=== PATIENT | female | born 1960 | race Caucasian/White ===

== ENCOUNTER 2022-03-23 13:07 | Inpatient (IN) | payer MEDICARE, MEDICAID ==
[~2022-03-23] VITALS: Ht 177.8 cm; Wt 140.0 kg
[~2022-03-23 13:07] MED LIST: CLON-853 PO; HYDR12.56 PO; LEVO75TA6 PO; LIS20T OR; NOR10T PO
[2022-03-23] MEDS ORDERED: methylPREDNISolone SOD SUCC 125 MG/2 ML VL IV ONE (14:00)
[2022-03-23 15:35] LABS: BUN/Creatinine Ratio 18.3; Bilirubin, Total 0.6 mg/dL (0.2-1.0); Calcium 8.8 mg/dL (8.5-10.1)
[2022-03-23 15:36] LABS: Albumin 4.3 g/dL (3.4-5.0)
[2022-03-23 16:34] LABS: Hematocrit 49.2 % (36.0-46.0); Hemoglobin 16.1 g/dL (12.2-16.2); Mean Corpuscular Hgb Conc. 32.7 g/dL (32.0-36.0); Mean Corpuscular Volume 91.6 fL (80.0-100.0); Red Blood Cells 5.37 10^6/uL (4.0-5.20); Red Cell Distribution Width 14.4 % (11.8-14.3); White Blood Cell 12.7 10^3/uL (4.4-10.8)
[2022-03-23 16:37] LABS: Basophils % (manual) 0 (0.0-2.0); Blast Cells 0; Eosinophils % (manual) 0 (0-7); Metamyelocytes % 0; Myelocytes % 0; Promyelocytes % 0; Reactive Lymphocytes 0
[2022-03-23] MEDS ORDERED: AZITHROMYCIN 500MG/ 250ML 250 ML IV ONE (17:00)
[2022-03-23 17:39] LABS: Band Neutrophils % (manual) 33; Lymphocytes % (manual) 3 (10.0-50.0); Monocytes % (manual) 6 (0-12)
[2022-03-23] MEDS ORDERED: IOHEXOL 350 MG/ML 100ML IJ ONE (18:21)
[2022-03-23] MEDS ORDERED: MORPHINE SULFATE INJ 2 MG/ml SYRG IV PRN (18:30)
[2022-03-23] MEDS ORDERED: NITROGLYCERIN 0.4 MG SL TAB SL PRN (18:30)
[2022-03-23] MEDS ORDERED: ENOXAPARIN SOD 120 MG/0.8 ML SYRINGE SC ONE (18:45)
[2022-03-23 19:17] LABS: Cholesterol 226 mg/dL (< 200); HDL Cholesterol 70 mg/dL (40-59); LDL Cholesterol 144 mg/dL (< 100); Triglycerides 97 mg/dL (< 150)
[2022-03-23] MEDS: IPRATROPIUM BROM 0.5 MG/2.5ML INH SOL NEB PRN (22:28)
[2022-03-23] MEDS: ALBUTEROL SULF 2.5 MG/0.5ML(0.5%) NEB SOLN NEB PRN (22:29)
[2022-03-23] MEDS ORDERED: ACETAMINOPHEN 325 MG TAB PO PRN (23:45)
[2022-03-24 00:34] LABS: Urine Bacteria NONE SEEN /hpf (None Seen); Urine Blood Negative /uL (Negative); Urine Specific Gravity 1.027 (1.001-1.035); Urine WBC 2 /hpf (0 - 5)
[2022-03-24] MEDS: clonazePAM 0.5 MG TAB PO PRN ×2 (00:40→22:46)
[2022-03-24 00:47] LABS: Alcohol, Urine < 3.0 mg/dL (0-10); Amphetamine Screen, Urine NEGATIVE (NEGATIVE); Barbiturate Scree,Urine NEGATIVE (NEGATIVE); Benzodiazephine Screen, Urine NEGATIVE (NEGATIVE); Cannabinoid Screen, Urine NEGATIVE (NEGATIVE); Cocaine Screen, Urine NEGATIVE (NEGATIVE); Opiate Scree,Urine NEGATIVE (NEGATIVE); Phencyclidine Screen, Urine NEGATIVE (NEGATIVE)
[2022-03-24 04:25] VITALS: BP 100/50
[2022-03-24 04:53] LABS: Basophils # (auto) 0 10 ^3/uL (0-0.2); Basophils % (auto) 0.2 % (0.0-2.0); Eosinophils # (auto) 0 10 ^3/uL (0-0.8); Hematocrit 41.8 % (36.0-46.0); Hemoglobin 14.3 g/dL (12.2-16.2); Lymphocytes # (auto) 0.6 10 ^3/uL (0.4-5.4); Lymphocytes % (auto) 4.7 % (10.0-50.0); Mean Corpuscular Hemoglobin 30.6 pg (28.0-32.0); Mean Corpuscular Hgb Conc. 34.2 g/dL (32.0-36.0); Mean Corpuscular Volume 89.5 fL (80.0-100.0); Monocytes # (auto) 0.6 10 ^3/uL (0-1.3); Monocytes % (auto) 4.9 % (0.0-12.0); Neutrophils # (auto) 10.9 10 ^3/uL (1.6-8.6); Neutrophils % (auto) 90.2 % (37.0-80.0); Red Blood Cells 4.68 10^6/uL (4.0-5.20); White Blood Cell 12.1 10^3/uL (4.4-10.8)
[2022-03-24 05:12] LABS: Albumin 3.5 g/dL (3.4-5.0); Calcium 8.9 mg/dL (8.5-10.1); Potassium 3.9 mmol/L (3.5-5.1)
[2022-03-24 05:14] LABS: BUN/Creatinine Ratio 16.2
[2022-03-24 05:25] LABS: Bilirubin, Total 1.2 mg/dL (0.2-1.0); Total Protein 6.5 g/dL (6.4-8.2)
[2022-03-24] MEDS ORDERED: ALBUTEROL MEDNEB 2.5 mg/3ml NEB ONE ×3 (05:41→18:00)
[2022-03-24] MEDS: IPRATROPIUM BROM 0.5 MG/2.5ML INH SOL NEB SCH ×3 (06:36→20:28)
[2022-03-24] MEDS: ALBUTEROL SULF 2.5 MG/0.5ML(0.5%) NEB SOLN NEB SCH ×3 (06:36→20:28)
[2022-03-24] MEDS: cefTRIAXone 1GM/50ML D5W 50 ML IV SCH (09:34)
[2022-03-24] MEDS: ENOXAPARIN SOD 40 MG/0.4 ML SYRINGE SC SCH (09:34)
[2022-03-24] MEDS: LEVOTHYROXINE SODIUM 25 MCG TAB PO SCH (09:42)
[2022-03-24] MEDS: OXYCODONE W/ ACETAMINOPHEN 5/325MG TABLET PO PRN ×2 (09:43→17:40)
[2022-03-24] MEDS: LISINOPRIL 20 MG TAB PO SCH (10:00)
[2022-03-24] MEDS: HCTZ 25 MG TAB PO SCH (10:00)
[2022-03-24] MEDS: AZITHROMYCIN 500MG/ 250ML 250 ML IV SCH (11:38)
[2022-03-24] MEDS: methylPREDNISolone SOD SUCC 125 MG/2 ML VL IV SCH ×2 (14:22→22:48)
[2022-03-24 19:52] VITALS: BP 125/61
[2022-03-24 22:00] VITALS: BP 137/71
[2022-03-24] MEDS: ATORVASTATIN 20 MG TAB PO SCH (22:00)
[2022-03-24] MEDS ORDERED: oxyCODONE ER 20 MG TAB PO ONE (22:15)
[2022-03-25 05:00] VITALS: BP 119/95
[2022-03-25] MEDS ORDERED: ALBUTEROL MEDNEB 2.5 mg/3ml NEB ONE ×3 (05:31→18:26)
[2022-03-25] MEDS: methylPREDNISolone SOD SUCC 125 MG/2 ML VL IV SCH ×3 (06:10→22:46)
[2022-03-25] MEDS: IPRATROPIUM BROM 0.5 MG/2.5ML INH SOL NEB SCH ×3 (07:29→19:15)
[2022-03-25] MEDS: ALBUTEROL SULF 2.5 MG/0.5ML(0.5%) NEB SOLN NEB SCH ×3 (07:30→19:16)
[2022-03-25] MEDS ORDERED: OXY20CRT PO (07:58)
[2022-03-25 09:00] VITALS: BP 121/57
[2022-03-25] MEDS: oxyCODONE ER 20 MG TAB PO SCH ×2 (09:39→21:25)
[2022-03-25] MEDS: LEVOTHYROXINE SODIUM 25 MCG TAB PO SCH (09:40)
[2022-03-25] MEDS: cefTRIAXone 1GM/50ML D5W 50 ML IV SCH (09:42)
[2022-03-25] MEDS: HCTZ 25 MG TAB PO SCH (09:42)
[2022-03-25] MEDS: LISINOPRIL 20 MG TAB PO SCH (09:42)
[2022-03-25] MEDS: ENOXAPARIN SOD 40 MG/0.4 ML SYRINGE SC SCH (09:44)
[2022-03-25] MEDS: AZITHROMYCIN 500MG/ 250ML 250 ML IV SCH (10:48)
[2022-03-25] MEDS: HYDROcodone-ACET 10/325MG TAB PO PRN ×2 (12:11→21:26)
[2022-03-25 13:00] VITALS: BP 133/64
[2022-03-25 16:20] VITALS: BP 126/63
[2022-03-25 22:00] VITALS: BP 136/66
[2022-03-25] MEDS: ATORVASTATIN 20 MG TAB PO SCH (22:00)
[2022-03-26] MEDS: clonazePAM 0.5 MG TAB PO PRN (00:52)
[2022-03-26 05:00] VITALS: BP 151/87
[2022-03-26] MEDS: IPRATROPIUM BROM 0.5 MG/2.5ML INH SOL NEB SCH ×3 (06:00→19:16)
[2022-03-26] MEDS: ALBUTEROL SULF 2.5 MG/0.5ML(0.5%) NEB SOLN NEB SCH ×3 (06:00→19:17)
[2022-03-26] MEDS: methylPREDNISolone SOD SUCC 125 MG/2 ML VL IV SCH ×3 (06:22→22:47)
[2022-03-26] MEDS: HYDROcodone-ACET 10/325MG TAB PO PRN ×3 (06:23→22:48)
[2022-03-26 08:00] VITALS: BP 121/57
[2022-03-26] MEDS: cefTRIAXone 1GM/50ML D5W 50 ML IV SCH (08:44)
[2022-03-26] MEDS: oxyCODONE ER 20 MG TAB PO SCH ×2 (08:44→22:47)
[2022-03-26] MEDS: LEVOTHYROXINE SODIUM 25 MCG TAB PO SCH (08:44)
[2022-03-26] MEDS: AZITHROMYCIN 500MG/ 250ML 250 ML IV SCH (08:45)
[2022-03-26] MEDS: LISINOPRIL 20 MG TAB PO SCH (08:51)
[2022-03-26] MEDS: ENOXAPARIN SOD 40 MG/0.4 ML SYRINGE SC SCH (08:51)
[2022-03-26] MEDS: HCTZ 25 MG TAB PO SCH (08:53)
[2022-03-26 09:00] VITALS: BP 156/85
[2022-03-26] MEDS: OXYCODONE W/ ACETAMINOPHEN 5/325MG TABLET PO PRN (10:06)
[2022-03-26] MEDS ORDERED: guaiFENesin-DM 100/10mg/5ml SYR PO PRN (12:00)
[2022-03-26 13:00] VITALS: BP 147/88
[2022-03-26 16:56] VITALS: BP 160/59
[2022-03-26] MEDS ORDERED: ALBUTEROL MEDNEB 2.5 mg/3ml NEB ONE (18:57)
[2022-03-26 22:00] VITALS: BP 170/77
[2022-03-26] MEDS ORDERED: guaiFENesin-DM 100/10mg/5ml SYR PO ONE (22:00)
[2022-03-26] MEDS: ATORVASTATIN 20 MG TAB PO SCH (22:00)
[2022-03-27] VITALS (8 sets, daily range): BP systolic 121–193; BP diastolic 50–92
[2022-03-27] MEDS: clonazePAM 0.5 MG TAB PO PRN (00:24)
[2022-03-27] MEDS ORDERED: ALBUTEROL MEDNEB 2.5 mg/3ml NEB ONE (05:46)
[2022-03-27] MEDS: methylPREDNISolone SOD SUCC 125 MG/2 ML VL IV SCH ×2 (06:44→14:30)
[2022-03-27] MEDS: HYDROcodone-ACET 10/325MG TAB PO PRN ×2 (06:46→16:13)
[2022-03-27] MEDS: ALBUTEROL SULF 2.5 MG/0.5ML(0.5%) NEB SOLN NEB SCH ×3 (07:59→17:30)
[2022-03-27] MEDS: IPRATROPIUM BROM 0.5 MG/2.5ML INH SOL NEB SCH ×3 (07:59→17:30)
[2022-03-27] MEDS: oxyCODONE ER 20 MG TAB PO SCH (08:45)
[2022-03-27] MEDS: LEVOTHYROXINE SODIUM 25 MCG TAB PO SCH (08:46)
[2022-03-27] MEDS: AZITHROMYCIN 500MG/ 250ML 250 ML IV SCH (08:47)
[2022-03-27] MEDS: cefTRIAXone 1GM/50ML D5W 50 ML IV SCH (08:47)
[2022-03-27] MEDS: LISINOPRIL 20 MG TAB PO SCH (08:47)
[2022-03-27] MEDS: guaiFENesin-DM 100/10mg/5ml SYR PO PRN ×2 (09:40→18:24)
[2022-03-27] MEDS: HCTZ 25 MG TAB PO SCH (10:00)
[2022-03-27] MEDS: ENOXAPARIN SOD 40 MG/0.4 ML SYRINGE SC SCH (10:11)
[2022-03-27] MEDS ORDERED: cloNIDine HCL 0.1 MG TAB PO ONE (10:15)
[2022-03-27] MEDS ORDERED: LISINOPRIL 20 MG TAB PO ONE (10:15)
[2022-03-27] MEDS: OXYCODONE W/ ACETAMINOPHEN 5/325MG TABLET PO PRN ×2 (10:34→14:30)
[2022-03-27] MEDS ORDERED: METOPROLOL TARTRATE 50 MG TAB PO ONE (11:00)
[2022-03-27 11:16] LABS: Hematocrit 40.7 % (36.0-46.0); Hemoglobin 13.3 g/dL (12.2-16.2); Mean Corpuscular Hemoglobin 29.4 pg (28.0-32.0); Mean Corpuscular Hgb Conc. 32.6 g/dL (32.0-36.0); Mean Corpuscular Volume 90.2 fL (80.0-100.0); Red Blood Cells 4.51 10^6/uL (4.0-5.20); Red Cell Distribution Width 13.9 % (11.8-14.3); White Blood Cell 15.3 10^3/uL (4.4-10.8)
[2022-03-27 11:31] LABS: BUN/Creatinine Ratio 29.1; Calcium 8.4 mg/dL (8.5-10.1); Potassium 4.2 mmol/L (3.5-5.1)
[2022-03-27 11:46] LABS: Basophils % (manual) 0 (0.0-2.0); Blast Cells 0; Eosinophils % (manual) 0 (0-7); Metamyelocytes % 0; Myelocytes % 0; Promyelocytes % 0; Reactive Lymphocytes 0
[2022-03-27 13:47] LABS: Band Neutrophils % (manual) 6; Lymphocytes % (manual) 7 (10.0-50.0); Monocytes % (manual) 5 (0-12)
[2022-03-27] MEDS ORDERED: hydrALAZINE HCL 20 MG/ML VL IV PRN (17:30)
[2022-03-27] MEDS: ATORVASTATIN 20 MG TAB PO SCH (22:00)
[2022-03-27] MEDS ORDERED: METOPROLOL TARTRATE 50 MG TAB PO SCH (22:00)
[2022-03-28] MEDS: methylPREDNISolone SOD SUCC 125 MG/2 ML VL IV SCH ×4 (00:03→21:24)
[2022-03-28] MEDS: guaiFENesin-DM 100/10mg/5ml SYR PO PRN ×3 (00:03→21:23)
[2022-03-28] MEDS: oxyCODONE ER 20 MG TAB PO SCH ×3 (00:04→21:24)
[2022-03-28] MEDS: METOPROLOL TARTRATE 50 MG TAB PO SCH ×3 (00:05→21:29)
[2022-03-28] MEDS: HYDROcodone-ACET 10/325MG TAB PO PRN ×2 (00:05→20:57)
[2022-03-28] MEDS: clonazePAM 0.5 MG TAB PO PRN ×2 (00:06→21:29)
[2022-03-28 05:00] VITALS: BP 203/111
[2022-03-28] MEDS: IPRATROPIUM BROM 0.5 MG/2.5ML INH SOL NEB SCH ×3 (06:00→18:29)
[2022-03-28] MEDS: ALBUTEROL SULF 2.5 MG/0.5ML(0.5%) NEB SOLN NEB SCH ×3 (06:00→18:29)
[2022-03-28 09:00] VITALS: BP 192/98
[2022-03-28] MEDS: ALBUTEROL SULF 2.5 MG/0.5ML(0.5%) NEB SOLN NEB PRN (09:27)
[2022-03-28] MEDS: IPRATROPIUM BROM 0.5 MG/2.5ML INH SOL NEB PRN (09:27)
[2022-03-28] MEDS: cefTRIAXone 1GM/50ML D5W 50 ML IV SCH (10:04)
[2022-03-28] MEDS: ENOXAPARIN SOD 40 MG/0.4 ML SYRINGE SC SCH (10:04)
[2022-03-28] MEDS: LEVOTHYROXINE SODIUM 25 MCG TAB PO SCH (10:05)
[2022-03-28] MEDS: LISINOPRIL 20 MG TAB PO SCH (10:06)
[2022-03-28] MEDS: amLODIPine BESYLATE 5 MG TAB PO SCH (10:06)
[2022-03-28] MEDS: HCTZ 25 MG TAB PO SCH (11:38)
[2022-03-28] MEDS: AZITHROMYCIN 500MG/ 250ML 250 ML IV SCH (11:38)
[2022-03-28] MEDS: hydrALAZINE HCL 10 MG TAB PO SCH ×2 (12:09→18:21)
[2022-03-28] MEDS: ACYCLOVIR 400 MG TAB PO SCH ×2 (14:33→21:24)
[2022-03-28 14:39] VITALS: BP 133/66
[2022-03-28 16:41] VITALS: BP 146/77
[2022-03-28] MEDS ORDERED: ALBUTEROL MEDNEB 2.5 mg/3ml NEB ONE (18:18)
[2022-03-28] MEDS: ATORVASTATIN 20 MG TAB PO SCH (21:40)
[2022-03-28 22:00] VITALS: BP 200/98
[2022-03-29] MEDS: cloNIDine HCL 0.1 MG TAB PO PRN ×2 (01:32→12:33)
[2022-03-29 05:00] VITALS: BP 148/83
[2022-03-29] MEDS: ALBUTEROL SULF 2.5 MG/0.5ML(0.5%) NEB SOLN NEB SCH ×3 (06:00→14:31)
[2022-03-29] MEDS: IPRATROPIUM BROM 0.5 MG/2.5ML INH SOL NEB SCH ×4 (06:00→18:27)
[2022-03-29] MEDS ORDERED: ALBUTEROL MEDNEB 2.5 mg/3ml NEB ONE ×3 (06:06→17:37)
[2022-03-29] MEDS: methylPREDNISolone SOD SUCC 125 MG/2 ML VL IV SCH (06:07)
[2022-03-29] MEDS: guaiFENesin-DM 100/10mg/5ml SYR PO PRN (06:07)
[2022-03-29] MEDS: hydrALAZINE HCL 10 MG TAB PO SCH ×4 (06:08→17:58)
[2022-03-29] MEDS: ACYCLOVIR 400 MG TAB PO SCH ×3 (06:08→20:59)
[2022-03-29 09:06] VITALS: BP 179/83
[2022-03-29] MEDS: METOPROLOL TARTRATE 50 MG TAB PO SCH ×2 (09:30→20:59)
[2022-03-29] MEDS: ENOXAPARIN SOD 40 MG/0.4 ML SYRINGE SC SCH (09:31)
[2022-03-29] MEDS: cefTRIAXone 1GM/50ML D5W 50 ML IV SCH (09:31)
[2022-03-29] MEDS: HCTZ 25 MG TAB PO SCH (09:31)
[2022-03-29] MEDS: LEVOTHYROXINE SODIUM 25 MCG TAB PO SCH (09:32)
[2022-03-29] MEDS: LISINOPRIL 20 MG TAB PO SCH (09:32)
[2022-03-29] MEDS: oxyCODONE ER 20 MG TAB PO SCH ×2 (09:33→20:59)
[2022-03-29] MEDS: amLODIPine BESYLATE 5 MG TAB PO SCH (09:33)
[2022-03-29] MEDS: AZITHROMYCIN 250 MG TAB PO SCH (11:27)
[2022-03-29] MEDS: OXYCODONE W/ ACETAMINOPHEN 5/325MG TABLET PO PRN ×2 (13:38→17:58)
[2022-03-29 14:04] VITALS: BP 164/70
[2022-03-29 17:07] VITALS: BP 132/67
[2022-03-29] MEDS: ATORVASTATIN 20 MG TAB PO SCH (20:59)
[2022-03-29 22:00] VITALS: BP 125/77
[2022-03-30] MEDS: hydrALAZINE HCL 10 MG TAB PO SCH ×3 (00:03→16:00)
[2022-03-30 01:50] VITALS: BP 125/76
[2022-03-30 05:00] VITALS: BP 156/85
[2022-03-30] MEDS ORDERED: ALBUTEROL MEDNEB 2.5 mg/3ml NEB ONE ×2 (05:57→10:30)
[2022-03-30] MEDS: ALBUTEROL SULF 2.5 MG/0.5ML(0.5%) NEB SOLN NEB SCH ×3 (06:00→11:23)
[2022-03-30] MEDS: ACYCLOVIR 400 MG TAB PO SCH ×2 (06:20→16:00)
[2022-03-30] MEDS: IPRATROPIUM BROM 0.5 MG/2.5ML INH SOL NEB PRN (06:46)
[2022-03-30] MEDS: LEVOTHYROXINE SODIUM 25 MCG TAB PO SCH (07:06)
[2022-03-30] MEDS: HYDROcodone-ACET 10/325MG TAB PO PRN ×3 (07:06→16:00)
[2022-03-30 09:03] VITALS: BP 142/70
[2022-03-30] MEDS: HCTZ 25 MG TAB PO SCH (10:00)
[2022-03-30] MEDS: oxyCODONE ER 20 MG TAB PO SCH (10:25)
[2022-03-30] MEDS: cefTRIAXone 1GM/50ML D5W 50 ML IV SCH ×2 (10:27→10:29)
[2022-03-30] MEDS: ENOXAPARIN SOD 40 MG/0.4 ML SYRINGE SC SCH (10:36)
[2022-03-30] MEDS: AZITHROMYCIN 250 MG TAB PO SCH (10:37)
[2022-03-30] MEDS: LISINOPRIL 20 MG TAB PO SCH (10:38)
[2022-03-30] MEDS: amLODIPine BESYLATE 5 MG TAB PO SCH (10:38)
[2022-03-30] MEDS: METOPROLOL TARTRATE 50 MG TAB PO SCH (10:39)
[2022-03-30] MEDS ORDERED: ACYC5CRE4 TOP (11:10)
[2022-03-30] MEDS ORDERED: HYDR25TA5 PO (11:10)
[2022-03-30] MEDS ORDERED: AMLO-496 PO (11:10)
[2022-03-30] MEDS ORDERED: ALBUAER3 IN (11:10)
[2022-03-30] MEDS ORDERED: METO25TA5 PO (11:10)
[2022-03-30] MEDS ORDERED: AZIT500T66 PO (11:10)
[2022-03-30] MEDS ORDERED: HYDR50TA15 PO (11:10)
[2022-03-30] MEDS ORDERED: LISI20TA28 PO (11:10)
[2022-03-30] MEDS: IPRATROPIUM BROM 0.5 MG/2.5ML INH SOL NEB SCH (11:23)
[2022-03-30 13:03] VITALS: BP 149/81
[2022-03-30 14:35] VITALS: BP 149/81
== END 2022-03-30 16:06 | disposition home or self-care (01) | DRG 871 ==
LOC: ER 13:13 → TELE 18:27 → TELE-WESTW 03-24 18:34
PROVIDERS: ADMIT Registered Nurse; ATTEND Family Medicine
DX: A41.9 Sepsis, unspecified organism (principal); J18.9 Pneumonia, unspecified organism; J96.01 Acute respiratory failure with hypoxia; I16.1 Hypertensive emergency; I50.32 Chronic diastolic (congestive) heart failure; Z68.41 Body mass index [BMI] 40.0-44.9, adult; E66.01 Morbid (severe) obesity due to excess calories; K44.9 Diaphragmatic hernia without obstruction or gangrene; E03.9 Hypothyroidism, unspecified; Z20.822 Contact with and (suspected) exposure to COVID-19; E78.00 Pure hypercholesterolemia, unspecified; F17.210 Nicotine dependence, cigarettes, uncomplicated; G89.4 Chronic pain syndrome; I11.0 Hypertensive heart disease with heart failure; I16.0 Hypertensive urgency; R73.03 Prediabetes; Z68.38 Body mass index [BMI] 38.0-38.9, adult; Z88.8 Allergy status to other drugs, medicaments and biological substances; Z79.899 Other long term (current) drug therapy; Z87.442 Personal history of urinary calculi; Z91.199 Patient's noncompliance with other medical treatment and regimen due to unspecified reason
CPT/HCPCS: 36415; 36600; 71045; 71275; 80048; 80053; 80061; 80307; 81001; 82805; 83036; 83605; 83880; 84443; 84484; 85007; 85025; 85027; 85379; 87040; 87426; 87804; 93005; 93306; 93970; 94640; 96365; 96366; 96367; 96372; 96375; 96376; G0378; J0696

== ENCOUNTER 2022-04-23 13:15 | Emergency (ER) | payer MEDICARE, MEDICAID ==
[~2022-04-23] VITALS: Ht 177.8 cm; Wt 130.0 kg
[~2022-04-23 13:15] MED LIST changes: +ACYC5CRE4 TOP; +ALBUAER3 IN; +AMLO-496 PO; +AZIT500T66 PO; +HYDR25TA5 PO; +HYDR50TA15 PO; +LISI20TA28 PO; +METO25TA5 PO; +OXY20CRT PO
[2022-04-23 13:32] VITALS: BP 132/74
[2022-04-23 14:48] LABS: Basophils # (auto) 0.1 10 ^3/uL (0-0.2); Basophils % (auto) 0.8 % (0.0-2.0); Eosinophils # (auto) 0.1 10 ^3/uL (0-0.8); Eosinophils % (auto) 2.1 % (0.0-7.0); Hematocrit 43.7 % (36.0-46.0); Hemoglobin 14.8 g/dL (12.2-16.2); Lymphocytes # (auto) 1.2 10 ^3/uL (0.4-5.4); Lymphocytes % (auto) 18.8 % (10.0-50.0); Mean Corpuscular Hemoglobin 30.7 pg (28.0-32.0); Mean Corpuscular Hgb Conc. 33.9 g/dL (32.0-36.0); Mean Corpuscular Volume 90.7 fL (80.0-100.0); Monocytes # (auto) 0.6 10 ^3/uL (0-1.3); Monocytes % (auto) 9.3 % (0.0-12.0); Neutrophils # (auto) 4.5 10 ^3/uL (1.6-8.6); Nucleated Red Blood Cells % 0.1 %; Red Blood Cells 4.81 10^6/uL (4.0-5.20); Red Cell Distribution Width 14.3 % (11.8-14.3); White Blood Cell 6.6 10^3/uL (4.4-10.8)
[2022-04-23 15:27] LABS: Albumin 4.1 g/dL (3.4-5.0); BUN/Creatinine Ratio 22.2; Bilirubin, Total 0.3 mg/dL (0.2-1.0); Total Protein 6.8 g/dL (6.4-8.2)
[2022-04-23 15:51] LABS: Potassium 4.7 mmol/L (3.5-5.1)
== END 2022-04-23 22:35 | disposition left against medical advice (07) ==
LOC: ER 13:15
DX: I10 Essential (primary) hypertension (principal); F17.210 Nicotine dependence, cigarettes, uncomplicated; Z90.89 Acquired absence of other organs; Z79.899 Other long term (current) drug therapy; Z88.8 Allergy status to other drugs, medicaments and biological substances
CPT/HCPCS: 36415; 80053; 84484; 85025; 85379; 93005

== ENCOUNTER 2022-07-28 18:01 | Emergency (ER) | payer MEDICARE, MEDICAID ==
[~2022-07-28] VITALS: Ht 177.8 cm; Wt 130.4 kg
[2022-07-28 20:00] VITALS: BP 95/56
== END 2022-07-28 20:00 | disposition home or self-care (01) ==
LOC: ER 18:01
DX: I16.0 Hypertensive urgency (principal); F17.210 Nicotine dependence, cigarettes, uncomplicated; Z90.89 Acquired absence of other organs; Z79.899 Other long term (current) drug therapy; Z88.8 Allergy status to other drugs, medicaments and biological substances
CPT/HCPCS: 93005

== ENCOUNTER 2024-05-30 14:09 | Inpatient (IN) | payer MEDICARE, MEDICAID ==
[~2024-05-30] VITALS: Ht 177.8 cm; Wt 79.5 kg
[~2024-05-30 14:09] MED LIST changes: -AMLO-496 PO; +AMLO1TAB23 PO; -HYDR12.56 PO; +HYDR12.59 PO; -HYDR50TA15 PO; +HYDR50TA47 PO; -LISI20TA28 PO; +LISI20TA56 PO
--- NOTE | 2024-05-30 14:45 | ED.PDOC ---
Altered Mental Status HPI Comments 64 y.o female accompanied by daughter, presents to the ED for an evaluation for possible unwitnessed ALOC last night. Patient reports she was sitting on her bed watching TV last night, went outside to get fresh air and when she came back in she felt "off". Patient is unable to described experience but does state not feeling herself and having somewhat an in and out unconsciousness. Patient reports she became alert and saw her dog in panic and looking at her. Patient today complains of dizziness. Patient has no history of seizures, nausea, vomiting, chest pain or SOB. Patient has medical history of HTN, thyroid disease and PNA. Chief Complaint: Syncope Time Seen by MD: 14:25 Primary Care Provider: SHEEBA Reviewed Notes: Nurses Notes, Medications, Allergies Allergies: Coded Allergies: Tramadol (Verified Allergy, Unknown, 03/23/22) Home Meds Active Scripts Acyclovir Topical (Zovirax) 5 % Cre, 1 APPLIC TOP 5XD, #15 GRAMS 1 Refill Prov:MEIR VICENTE MD 03/30/22 Lisinopril (Lisinopril) 20 Mg Tab, 1 TAB PO DAILY, #90 TAB 1 Refill Prov:MEIR VICENTE MD 03/30/22 Amlodipine Besylate (Amlodipine Besylate) 10 Mg Tab, 1 TAB PO DAILY, #90 TAB 1 Refill Prov:MEIR VICENTE MD 03/30/22 Hctz (Hydrochlorothiazide) 25 Mg Tab, 25 MG PO DAILY, #90 TAB Prov:MEIR VICENTE MD 03/30/22 Hydralazine Hcl (Hydralazine Hcl) 50 Mg Tab, 1 TAB PO TID, #90 TAB 5 Refills Prov:MEIR VICENTE MD 03/30/22 Albuterol Sulfate (VENTOLIN MDI) 90 Mcg Ih, 90 MCG IN Q4HR, #1 INH Prov:MEIR VICENTE MD 03/30/22 Reported Medications Clonidine Hydrochloride (Clonidine Hcl) 0.2 Mg Tab, 1 TAB PO QID 05/30/24 Fluoxetine HCl (Fluoxetine HCl) 20 Mg Cap, 1 CAP PO DAILY 05/30/24 Clonazepam (Clonazepam) 0.5 Mg Tab, 1 TAB PO HS 05/30/24 Metoprolol Tartrate (LOPRESSOR TABLET) 50 Mg Tb, 1 TAB PO BID 05/30/24 Oxycodone Hcl (OxyCONTIN ER Tablet) 20 Mg Tb, 40 MG PO Q12HR, TAB 03/25/22 Hydrocodone-Acetaminophen ([place] 10/325MG) 1 Tab Tb, 1 TAB PO QID, #120 TAB 02/13/15 Levothyroxine Sodium (Levothyroxine Sodium) 75 Mcg Tab, 1 TAB PO DAILY, #30 TAB 5 Refills 02/13/15 Hydrochlorothiazide (Hydrochlorothiazide) 12.5 Mg Cap, 1 CAP PO DAILY, #30 CAP 5 Refills 02/13/15 Lisinopril (ZESTRIL TABLET) 20 Mg Tb, 20 MG OR DAILY 02/13/15 Discontinued Reported Medications Clonazepam (Clonazepam) 1 Mg Tab, 1 TAB PO DAILYP PRN for ANXIETY, #30 TAB 02/13/15 Discontinued Scripts Metoprolol Tartrate (Metoprolol Tartrate) 25 Mg Tab, 1 TAB PO BID, #180 TAB 1 Refill Prov:MEIR VICENTE MD 03/30/22 Azithromycin (Azithromycin) 500 Mg Tab, 1 TAB PO DAILY, #7 TAB Prov:MEIR VICENTE MD 03/30/22 Information Source: Patient, Relative (daughter ) Mode of Arrival: Wheelchair Severity: Moderate Timing: Days (1) Duration: Since onset Quality: Decreased Alertness, Change in Behavior Recent: Other History of: None Associated Signs and Symptoms: Other Past Medical History PAST MEDICAL HISTORY: HTN, Kidney Stones, Thyroid Surgical History: Tonsillectomy Surgical History (Other): right knee replacement ZOO KEEPER History: No Pertinent ZOO KEEPER History Family History Family History: Reviewed,noncontributory to illness, Family hx of Cancer, Family hx of heart helen Social History Smoker: Non-Smoker Alcohol: Denies ETOH Use Drugs: Denies Drug Use Lives In: Home Constitutional: denies: chills, diaphoresis, fatigue, fever, malaise, sweats, weakness, others EENTM: denies: blurred vision, double vision, ear bleeding, ear discharge, ear drainage, ear pain, ear ringing, eye pain, eye redness, hearing loss, mouth pain, mouth swelling, nasal discharge, nose bleeding, nose congestion, nose pain, photophobia, tearing, throat pain, throat swelling, voice changes, others Respiratory: denies: cough, hemoptysis, orthopnea, SOB at rest, shortness of breath, SOB with excertion, stridor, wheezing, others Cardiovascular: reports: lightheadedness, syncope; denies: chest pain, dizzy spells, diaphoresis, Dyspnea on exertion, edema, irregular heart beat, left arm pain, palpitations, PND, others Gastrointestinal: denies: abdomen distended, abdominal pain, blood streaked bowels, constipated, diarrhea, dysphagia, difficulty swallowing, hematemesis, melena, nausea, poor appetite, poor fluid intake, rectal bleeding, rectal pain, vomiting, others Genitourinary: denies: abnormal vagina bleeding, burning, dyspareunia, dysuria, flank pain, frequency, hematuria, incontinence, pain, , vagina di scharge, urgency, others Neurological: reports: dizziness; denies: fainting, headache, left sided numbness, left sided weakness, numbness, paresthesia, pre-existing deficit, right sided numbness, right sided weakness, seizure, speech problems, tingling, tremors, weakness, others Musculoskeletal: denies: back pain, gout, joint pain, joint swelling, muscle pain, muscle stiffness, neck pain, others Integumetry: denies: bruises, change in color, change in hair/nails, dryness, laceration, lesions, lumps, rash, wounds, others Allergic/Immunocompromised: denies: Difficulty Healing, Frequent Infections, Hives, Itching, others Hematologic/Lymphatic: denies: anemia, blood clots, easy bleeding, easy bruising, swollen glands, others Endocrine: denies: excessive hunger, excessive sweating, excessive thirst, excessive urination, flushing, intolerance to cold, intolerance to heat, unexplained weight gain, unexplained weight loss, others Psychiatric: denies: anxiety, bipolar disorder, depression, hopeless, panic disorder, schizophrenia, sleepless, suicidal, others All Other Systems: Reviewed and Negative Physical Exam General Appearance: Moderate Distress, Obese HEENT: Pale Conjuntivae (L), Pale Conjuntivae (R), Pharynx Normal, TMs Normal Neck: Full Range of Motion, Non-Tender, Normal, Normal Inspection Respiratory: Chest Non-Tender, Lungs Clear, No Accessory Muscle Use, No Respiratory Distress, Normal Breath Sounds Cardiovascular: No Edema, No JVD, No Murmur, No Gallop, Normal Peripheral Pulses, Regular Rate/Rhythm Breast Exam: Deferred Gastrointestinal: No Organomegaly, Non Tender, No Pulsatile Mass, Normal Bowel Sounds, Soft Genitalia: Deferred Pelvic: Deferred Rectal: Deferred Extremities: Decreased range of motion (Right knee), No calf tenderness, Normal capillary refill, Pedal edema Musculoskeletal : Apperance: Normal Neurologic: Alert, putty mixer II-XII nml as Tested, Motor Weakness, Normal Affect, Normal Mood, No Sensory Deficits Cerebellar Function: Normal Reflexes: Normal Skin: Dry, Normal Color, Warm Lymphatic: No Adenopathy Was a procedure done? Was a procedure done?: No Differential Diagnosis (ALOC) Differential Diagnosis: Dehydration, Hypoglycemia, Encephalopathy, Seizure, Closed Head Injury, CVA X-Ray, Labs, Meds, VS Vital Signs Date Time Temp Pulse Resp B/P (MAP) Pulse Ox O2 Delivery O2 Flow Rate FiO2 05/30/24 16:06 18 Room Air* 0 21 05/30/24 15:36 54 05/30/24 14:26 98.5 75 17 169/85 (113) 95 Lab Test 05/30/24 15:20 05/30/24 14:21 Range/Units White Blood Count 8.0 4.4-10.8 10^3/uL Red Blood Count 4.83 4.0-5.20 10^6/uL Hemoglobin 14.6 12.2-16.2 g/dL Hematocrit 42.9 36.0-46.0 % Mean Corpuscular Volume 88.8 80.0-100.0 fL Mean Corpuscular Hemoglobin 30.2 28.0-32.0 pg Mean Corpuscular Hemoglobin Concent 34.0 32.0-36.0 g/dL Red Cell Distribution Width 13.9 11.8-14.3 % Platelet Count 301 140-450 10^3/uL Mean Platelet Volume 8.1 6.9-10.8 fL Neutrophils (%) (Auto) 70.1 37.0-80.0 % Lymphocytes (%) (Auto) 18.5 10.0-50.0 % Monocytes (%) (Auto) 8.2 0.0-12.0 % Eosinophils (%) (Auto) 2.2 0.0-7.0 % Basophils (%) (Auto) 1.0 0.0-2.0 % Neutrophils # (Auto) 5.6 1.6-8.6 10 ^3/uL Lymphocytes # (Auto) 1.5 0.4-5.4 10 ^3/uL Monocytes # (Auto) 0.7 0-1.3 10 ^3/uL Eosinophils # (Auto) 0.2 0-0.8 10 ^3/uL Basophils # (Auto) 0.1 0-0.2 10 ^3/uL Nucleated Red Blood Cells 0.1 % Sodium Level 140 136-145 mmol/L Potassium Level 4.0 3.5-5.1 mmol/L Chloride Level 105 98-107 mmol/L Carbon Dioxide Level 29 20-31 mmol/L Anion Gap 6 5-15 Blood Urea Nitrogen 8 L 9-23 mg/dL Creatinine 0.76 0.550-1.02 mg/dL Glomerular Filtration Rate Calc 86 >90 mL/min BUN/Creatinine Ratio 10.5 10.0-20.0 Serum Glucose 103 74-106 mg/dL Calcium Level 9.6 8.7-10.4 mg/dL POC Glucose 116 H 70-106 mg/dl EXAM: CT HEAD WITHOUT CONTRAST IMPRESSION: 1. No acute intracranial process. The patient's CBC and chemistry panel are within normal limits The glucose is negative An IV Hep-Lock was established The patient was being admitted at this time. Images Reviewed?: Images reviewed and evaluated by me Time of 1ST Reevaluation: 14:39 Reevaluation 1ST: Unchanged Patient Education/Counseling: Diagnosis, Treatment, Prognosis Family Education/Counseling: Diagnosis, Treatment, Prognosis Departure 1 Departure Time of Disposition: 18:28 Impression: Primary Impression: Autonomic dysfunction Disposition: 09 ADMITTED INPATIENT Admit to: [facility] Condition: Fair Critical Care Note Critical Care Time?: No Stability Stability form required: Yes Unstable for transfer: Telemetry monitoring (Telemetry monitoring required), ED Physician Assesment (Clinical assesment) Heart Score Heart Score: Heart Score Response (Comments) Value History N/A 0 EKG N/A 0 Age N/A 0 Risk Factors N/A 0 Troponin N/A 0 Total 0 I personally scribed for WAQAR MEDINA MD (DONALDPASLE) on 05/30/24 at 14:45. Electronically submitted by Deepa Villar ([facility]). I personally scribed for WAQAR MEDINA MD (DONALDPASLE) on 05/30/24 at 18:23. Electronically submitted by Deepa Villar ([facility]). WAQAR MEDINA MD May 30, 2024 14:45
--- NOTE | 2024-05-30 15:39 | ECG ---
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
[2024-05-30 15:45] LABS: Basophils # (auto) 0.1 10 ^3/uL (0-0.2); Eosinophils # (auto) 0.2 10 ^3/uL (0-0.8); Eosinophils % (auto) 2.2 % (0.0-7.0); Hematocrit 42.9 % (36.0-46.0); Hemoglobin 14.6 g/dL (12.2-16.2); Lymphocytes # (auto) 1.5 10 ^3/uL (0.4-5.4); Lymphocytes % (auto) 18.5 % (10.0-50.0); Mean Corpuscular Hemoglobin 30.2 pg (28.0-32.0); Mean Corpuscular Volume 88.8 fL (80.0-100.0); Monocytes # (auto) 0.7 10 ^3/uL (0-1.3); Monocytes % (auto) 8.2 % (0.0-12.0); Neutrophils # (auto) 5.6 10 ^3/uL (1.6-8.6); Neutrophils % (auto) 70.1 % (37.0-80.0); Nucleated Red Blood Cells % 0.1 %; Platelet Count (auto) 301 10^3/uL (140-450); Red Blood Cells 4.83 10^6/uL (4.0-5.20); Red Cell Distribution Width 13.9 % (11.8-14.3)
[2024-05-30 15:53] LABS: Chloride 105 mmol/L (98-107); Sodium 140 mmol/L (136-145)
[2024-05-30 15:54] LABS: Anion Gap 6 (5-15); Calcium 9.6 mg/dL (8.7-10.4); Carbon Dioxide 29 mmol/L (20-31)
[2024-05-30 15:59] LABS: BUN/Creatinine Ratio 10.5 (10.0-20.0); Glucose 103 mg/dL (74-106)
[2024-05-30 16:01] LABS: Blood Urea Nitrogen 8 mg/dL (9-23)
[2024-05-30 16:06] VITALS: RESP 18
[2024-05-30] MEDS ORDERED: MORPHINE SULFATE INJ 2 MG/ml SYRG IV PRN (16:45)
[2024-05-30] MEDS ORDERED: DOCUSATE SOD 100 MG CAP PO PRN (16:45)
[2024-05-30] MEDS ORDERED: ACETAMINOPHEN 325 MG TAB PO PRN (16:45)
[2024-05-30] MEDS ORDERED: ONDANSETRON HCL 4 MG/2 ML VIAL IV PRN (16:45)
[2024-05-30] MEDS ORDERED: HYDROcodone-ACET 5/325MG TAB PO PRN (16:45)
[2024-05-30] MEDS ORDERED: NITROGLYCERIN 0.4 MG SL TAB SL PRN (16:45)
--- NOTE | 2024-05-30 16:51 | DVHHP2 ---
History of Present Illness Reason for Visit: Syncopal episodes History of Present Illness Tyra Hankins is a 64-year-old female with past medical history of hypertension, hypothyroidism, and pneumonia, who came in for syncopal episode. Patient states that last night she was in bed when she began feeling light headed and fuzzy, and then she went out. She states she ankita remembers part of what happened, but not all of it. She states coming around to her dog scared and barking at her. Patient denies any nausea, vomiting, fever, chills, chest pain, shortness of breath, or hitting her head. She states that she did not sleep well the last couple of nights. Cardiovascular: HTN Endocrine: Hypothyroidism Past Surgical History: Other (hammer toe surgery), Total knee replacement (right), Tonsillectomy Smoke: No ALCOHOL: none Drugs: None Lives: with Family Domestic Violence: Neg Review of Systems Constitutional: No: Fever, Chills, Sweats, Weakness, Malaise, Other Eyes: No: Pain, Vision change, Conjunctivae inflammation, Eyelid inflammation, Other, Redness ENT: No: Ear pain, Ear discharge, Nose pain, Nose discharge, Nose congestion, Mouth pain, Mouth swelling, Throat pain, Throat swelling, Other Respiratory: No: Cough, Dry, Shortness of breath, SOB with excertion, Wheezing, Hemoptysis, Pleuritic Pain, Sputum, Wheezing, Other Cardiovascular: No: Chest Pain, Palpitations, Orthopnea, Paroxysmal Noc. Dyspnea, Edema, Lt Headedness, Other Gastrointestinal: No: Nausea, Vomiting, Abdominal Pain, Diarrhea, Constipation, Melena, Hematochezia, Other Genitourinary: No Dysuria, No Frequency, No Incontinence, No Hematuria, No Retention, No Other Musculoskeletal: No: other, neck pain, shoulder pain, arm pain, back pain, hand pain, leg pain, foot pain Skin: No: Rash, Lesions, Jaundice, Bruising, Other Neurological: Other (Syncopal episodes); No: Weakness, Numbness, Incoordination, Change in speech, Confusion, Seizures Allergies: Coded Allergies: Tramadol (Verified Allergy, Unknown, 03/23/22) Exam Vital Signs Vital Signs Date Time Temp Pulse Resp B/P (MAP) Pulse Ox O2 Delivery O2 Flow Rate FiO2 05/30/24 16:06 18 Room Air* 0 21 05/30/24 15:36 54 05/30/24 14:26 98.5 169/85 (113) 95 General Appearance: Alert, Oriented X3, Cooperative, mild distress HEENT: Atraumatic, PERRLA Respiratory: Clear to auscultation, Normal air movement Cardiovascular: Regular rate, Normal S1, Normal S2, No murmurs Abdominal: Normal bowel sounds, Soft, No tenderness, No hepatospenomegaly Extremities: No clubbing, No cyanosis, No edema, Normal pulses, No tenderness/swelling Skin: No rashes, No breakdown, No significant lesion Neuro: Normal gait, Normal speech, Strength at 5/5 X4 ext, Normal tone Psych/Mental Status: Mental status NL, Mood NL Labs/Xrays Labs Test 05/30/24 15:20 05/30/24 14:21 Range/Units White Blood Count 8.0 4.4-10.8 10^3/uL Red Blood Count 4.83 4.0-5.20 10^6/uL Hemoglobin 14.6 12.2-16.2 g/dL Hematocrit 42.9 36.0-46.0 % Mean Corpuscular Volume 88.8 80.0-100.0 fL Mean Corpuscular Hemoglobin 30.2 28.0-32.0 pg Mean Corpuscular Hemoglobin Concent 34.0 32.0-36.0 g/dL Red Cell Distribution Width 13.9 11.8-14.3 % Platelet Count 301 140-450 10^3/uL Mean Platelet Volume 8.1 6.9-10.8 fL Neutrophils (%) (Auto) 70.1 37.0-80.0 % Lymphocytes (%) (Auto) 18.5 10.0-50.0 % Monocytes (%) (Auto) 8.2 0.0-12.0 % Eosinophils (%) (Auto) 2.2 0.0-7.0 % Basophils (%) (Auto) 1.0 0.0-2.0 % Neutrophils # (Auto) 5.6 1.6-8.6 10 ^3/uL Lymphocytes # (Auto) 1.5 0.4-5.4 10 ^3/uL Monocytes # (Auto) 0.7 0-1.3 10 ^3/uL Eosinophils # (Auto) 0.2 0-0.8 10 ^3/uL Basophils # (Auto) 0.1 0-0.2 10 ^3/uL Nucleated Red Blood Cells 0.1 % Sodium Level 140 136-145 mmol/L Potassium Level 4.0 3.5-5.1 mmol/L Chloride Level 105 98-107 mmol/L Carbon Dioxide Level 29 20-31 mmol/L Anion Gap 6 5-15 Blood Urea Nitrogen 8 L 9-23 mg/dL Creatinine 0.76 0.550-1.02 mg/dL Glomerular Filtration Rate Calc 86 >90 mL/min BUN/Creatinine Ratio 10.5 10.0-20.0 Serum Glucose 103 74-106 mg/dL Calcium Level 9.6 8.7-10.4 mg/dL POC Glucose 116 H 70-106 mg/dl EXAM: CT HEAD WITHOUT CONTRAST FINDINGS: Supratentorial Region: No evidence for large acute territorial ischemia. No intracranial hemorrhage is noted. Posterior Fossa: No acute abnormality. Brainstem: Unremarkable. Sellar/Suprasellar Region: Unremarkable. Ventricles, Cisterns, Sulci: Age-appropriate. Orbits: Unremarkable. Paranasal Sinuses: Unremarkable. Mastoid Air Cells: Unremarkable. Vasculature: Unremarkable. Bones/Soft Tissues: No acute abnormality. Other: None. IMPRESSION: 1. No acute intracranial process. Assessment/Plan Assessment/Plan Assessment: Syncopal episodes, Hypertension, Hypothyroidism, Chronic pain, Plan: Admit to Tele, Cardiology consult, ECHO, Carotid ultrasound, IV hydration, Home medications reconciled, Plan discussed with: Patient, Daughter My Orders Orders - RADHIKA JOHNSON [employer]ER Procedure Category Date Status Time Admit ADMIT 05/30/24 Transmitted 16:45 Code Status CODE 05/30/24 Transmitted 16:45 2 Gm Sodium Diet DIET 05/30/24 Transmitted Dinner Hydrocodone-Acet PHA 05/30/24 Transmitted 5/325mg Tab ([place] 16:45 Ondansetron Hcl PHA 05/30/24 Transmitted (Zofran) 16:45 Docusate Sodium PHA 05/30/24 Transmitted Capsule (Colace 16:45 Complete Blood Count LAB 05/31/24 Verified 04:00 Comprehensive LAB 05/31/24 Verified Metabolic Panel 04:00 Echo 2d Mode Cardiac US 05/30/24 Transmitted DOP 16:45 Carotid Duplx W Color US 05/30/24 Transmitted DOP 16:45 Condition: Serious SOURAV 05/30/24 Transmitted 16:45 Acetaminophen Tablet PHA 05/30/24 Transmitted (Tylenol Tablet) 16:45 Nitroglycerin PHA 05/30/24 Transmitted Sublingual (Ntrostat 16:45 Morphine Sulfate PHA 05/30/24 Transmitted Injection 16:45 Stat Ekg For Chest [facility]OURAV 05/30/24 Transmitted Pain 16:45 Notify Md Of Changes [facility] 05/30/24 Transmitted From Base 16:45 Blast Furnace Supervisor For [facility] 05/30/24 Transmitted 24 Hours 16:45 Emergency Dysrhythmia [facility] 05/30/24 Transmitted Protocol 16:45 Rhythm Strips Once [facility] 05/30/24 Transmitted Every Shift 16:45 Oxygen By Nasal RT 05/30/24 Transmitted Cannula 16:45 * Cardiology Consult CONS 05/30/24 Transmitted 16:45 Date of Service: May 30, 2024 Billing Provider: RADHIKA JOHNSON Common Visit Codes: [id number] INP/OBS CARE (MOD) RADHIKA JOHNSON May 30, 2024 16:51
--- NOTE | 2024-05-30 17:19 | DVH ---
EXAM: CT HEAD WITHOUT CONTRAST HISTORY: near syncope COMPARISON: None TECHNIQUE: Axial images were obtained and reformatted in coronal and sagittal planes. All CT scans at this medical facility are performed using dose modulation techniques as appropriate t o a performed exam including the following: Automated exposure control was utilized; adjustment of th e MA and/or KV according to patient size; and use of iterative reconstruction technique. CT Dose: CTDI volume is 58.15 mGy. Dose-length product is 932.17 mGy*cm FINDINGS: Supratentorial Region: No evidence for large acute territorial ischemia. No intracranial hemorrhage is noted. Posterior Fossa: No acute abnormality. Brainstem: Unremarkable. Sellar/Suprasellar Region: Unremarkable. Ventricles, Cisterns, Sulci: Age-appropriate. Orbits: Unremarkable. Paranasal Sinuses: Unremarkable. Mastoid Air Cells: Unremarkable. Vasculature: Unremarkable. Bones/Soft Tissues: No acute abnormality. Other: None. IMPRESSION: 1. No acute intracranial process.
--- NOTE | 2024-05-30 17:56 | DVH ---
CAROTID DOPPLER ULTRASOUND HISTORY: Syncopal episodes COMPARISON: None TECHNIQUE: Real time mcdonough scale, color Doppler, and spectral duplex images are obtained through the c arotid and vertebral arteries. Findings: Peak systolic velocity right internal carotid artery is 83 cm/s and right common carotid artery is 95 cm/s. Ratio is 0.9. Antegrade flow noted in right vertebral artery. No significant atherosclerotic p laque noted within the right carotid arterial system. Peak systolic velocity left internal carotid artery is 89 cm/s and left common carotid artery is 81 c m/s. Ratio is 1.1. Antegrade flow noted in left vertebral artery. No significant atherosclerotic plaq ue noted within the left carotid arterial system. Impression: 1. No evidence of hemodynamically significant stenosis within the bilateral carotid arterial systems. 2. Antegrade flow within bilateral vertebral arteries.
[2024-05-30 18:05] VITALS: BP_SYST 134; BP_SYST 149; BP_DIAS 80; BP_DIAS 87; PULSE 86; RESP 18; TEMP 98; O2SAT 92
[2024-05-30] MEDS ORDERED: MET50T PO (18:06)
[2024-05-30] MEDS ORDERED: CLON0.5T4 PO (18:06)
[2024-05-30] MEDS ORDERED: FLUO-470 PO (18:06)
[2024-05-30] MEDS ORDERED: CLON0.2T PO (18:06)
[2024-05-30 18:15] VITALS: PULSE 86; RESP 18; O2SAT 92
--- NOTE | 2024-05-30 18:26 | DVHINCON2 ---
[facility] 05/30/24 1826: Date Seen: May 30, 2024 Referring Physician DESTINEE Snell Reason for Consultation Syncopal episodes History of Present Illness This is a 64-year-old female who presented to the emergency room with a chief complaint of generalized weakness. The patient reports episodes of increased dizziness and lack of energy with associated SBP in the 240s mmHg. Reports an episode where she was tired sitting of her bed when she possibly either fell asleep or experienced a near syncopal event prompting her to seek further medical attention. She manages her BP with clonidine 0.2 mg QID, lisinopril 20 mg BID, lopressor 50 mg bid, and amlodipine 10 mg QD stating compliance with medical therapy. Sees Dr. Yang for BP management. She underwent a 12-lead electrocardiogram revealing a sinus bradycardia rhythm with a heart rate of 54 bpm. Upon assessment the patient denied any further symptoms. Significant medical history includes hypertension, dyslipidemia, thyroid disease, chronic back pain, prediabetes, nephrolithiasis, and obesity. Past Medical History Past medical history reviewed. No other significant than mentioned above. Past Surgical History Right knee Right foot Tonsillectomy Family History: Patient reports no known family medical history. Family History Family history reviewed. Social History Denies the use of illicit drugs, alcohol, or tobacco use. Allergies: Coded Allergies: Tramadol (Verified Allergy, Unknown, 03/23/22) Home Meds Active Scripts Acyclovir Topical (Zovirax) 5 % Cre, 1 APPLIC TOP 5XD, #15 GRAMS 1 Refill Prov:MEIR VICENTE MD 03/30/22 Lisinopril (Lisinopril) 20 Mg Tab, 1 TAB PO DAILY, #90 TAB 1 Refill Prov:MEIR VICENTE MD 03/30/22 Amlodipine Besylate (Amlodipine Besylate) 10 Mg Tab, 1 TAB PO DAILY, #90 TAB 1 Refill Prov:MEIR VICENTE MD 03/30/22 Hctz (Hydrochlorothiazide) 25 Mg Tab, 25 MG PO DAILY, #90 TAB Prov:MEIR VICENTE MD 03/30/22 Hydralazine Hcl (Hydralazine Hcl) 50 Mg Tab, 1 TAB PO TID, #90 TAB 5 Refills Prov:MEIR VICENTE MD 03/30/22 Albuterol Sulfate (VENTOLIN MDI) 90 Mcg Ih, 90 MCG IN Q4HR, #1 INH Prov:MEIR VICENTE MD 03/30/22 Reported Medications Clonidine Hydrochloride (Clonidine Hcl) 0.2 Mg Tab, 1 TAB PO QID 05/30/24 Fluoxetine HCl (Fluoxetine HCl) 20 Mg Cap, 1 CAP PO DAILY 05/30/24 Clonazepam (Clonazepam) 0.5 Mg Tab, 1 TAB PO HS 05/30/24 Metoprolol Tartrate (LOPRESSOR TABLET) 50 Mg Tb, 1 TAB PO BID 05/30/24 Oxycodone Hcl (OxyCONTIN ER Tablet) 20 Mg Tb, 40 MG PO Q12HR, TAB 03/25/22 Hydrocodone-Acetaminophen ([place] 10/325MG) 1 Tab Tb, 1 TAB PO QID, #120 TAB 02/13/15 Levothyroxine Sodium (Levothyroxine Sodium) 75 Mcg Tab, 1 TAB PO DAILY, #30 TAB 5 Refills 02/13/15 Hydrochlorothiazide (Hydrochlorothiazide) 12.5 Mg Cap, 1 CAP PO DAILY, #30 CAP 5 Refills 02/13/15 Lisinopril (ZESTRIL TABLET) 20 Mg Tb, 20 MG OR DAILY 02/13/15 Discontinued Reported Medications Clonazepam (Clonazepam) 1 Mg Tab, 1 TAB PO DAILYP PRN for ANXIETY, #30 TAB 02/13/15 Discontinued Scripts Metoprolol Tartrate (Metoprolol Tartrate) 25 Mg Tab, 1 TAB PO BID, #180 TAB 1 Refill Prov:MEIR VICENTE MD 03/30/22 Azithromycin (Azithromycin) 500 Mg Tab, 1 TAB PO DAILY, #7 TAB Prov:MEIR VICENTE MD 03/30/22 Home Meds Home medications reviewed. Current Medications Current Medications Medications (Trade) Dose Ordered Sig/Neeraj Route PRN Reason Start Time Stop Time Status Last Admin Acetaminophen/ Hydrocodone Bitart ([place] 5/325MG Tab) 1 tab Q4HP PRN PO MODERATE PAIN (4-6 PAIN SCALE) 05/30/24 16:45 Ondansetron HCl (Zofran) 4 mg Q4HP PRN IV NAUSEA / VOMITING 05/30/24 16:45 Docusate Sodium (Colace Capsule) 100 mg BIDPRN PRN PO FOR CONSTIPATION 05/30/24 16:45 Acetaminophen (Tylenol Tablet) 650 mg Q6HP PRN PO PAIN SCALE 1-3 OR TEMP>100.4 05/30/24 16:45 Nitroglycerin (Ntrostat Sublingual) 0.4 mg Q5MINP PRN SL FOR CHEST PAIN 05/30/24 16:45 Morphine Sulfate 2 mg Q30M PRN IV FOR CHEST PAIN 05/30/24 16:45 Review of Systems Constitutional: Generalized weakness Ears, Nose, & Throat: No symptom reported Eyes: No symptom reported Neurological: No symptoms reported Pulmonary/Respiratory: No symptom reported Cardiovascular: No symptom reported Gastrointestinal: No symptom reported Genitourinary: No symptom reported Musculoskeletal: No symptom reported Skin: No symptom reported Psychiatric: No symptom reported Endocrine: No symptom reported Hemotologic/Lymphatic: No symptom reported Vital Signs Vital Signs Date Time Temp Pulse Resp B/P (MAP) Pulse Ox O2 Delivery O2 Flow Rate FiO2 05/30/24 16:06 18 Room Air* 0 21 05/30/24 15:36 54 05/30/24 14:26 98.5 169/85 (113) 95 Physical Exam General Appearance: Cooperative. Well developed. Obese. In no acute distress Head Exam: Normal inspection Neck Exam: Normal inspection. Non-tender. Normal alignment Pulmonary/Respiratory: Chest non-tender. Clear bilateral breath sounds Cardiovascular/Chest: Regular rate and rhythm. S1, S2. Sinus bradycardia rhythm. No murmurs. No JVD. Peripheral Pulses: 2+ Radial (R). 2+ Radial (L). 2+ Pedal (R). 2+ Pedal (L) Abdominal Exam: Normal bowel sounds. Soft. Nontender. No hepatospenomegaly. No masses Ankle Exam: Negative ankle edema Lower extremities: Negative lower extremity edema Neuro/Mental Status: A&O x4. Coherent Thoughts/Psych: Normal thought pattern. Appropriate mood and affect. Good judgement and insight Appearance: In no acute distress Skin Exam: Normal inspection. Normal color. Warm. Dry Labs/Diagnostic Data Labs Test 05/30/24 15:20 05/30/24 14:21 Range/Units White Blood Count 8.0 4.4-10.8 10^3/uL Red Blood Count 4.83 4.0-5.20 10^6/uL Hemoglobin 14.6 12.2-16.2 g/dL Hematocrit 42.9 36.0-46.0 % Mean Corpuscular Volume 88.8 80.0-100.0 fL Mean Corpuscular Hemoglobin 30.2 28.0-32.0 pg Mean Corpuscular Hemoglobin Concent 34.0 32.0-36.0 g/dL Red Cell Distribution Width 13.9 11.8-14.3 % Platelet Count 301 140-450 10^3/uL Mean Platelet Volume 8.1 6.9-10.8 fL Neutrophils (%) (Auto) 70.1 37.0-80.0 % Lymphocytes (%) (Auto) 18.5 10.0-50.0 % Monocytes (%) (Auto) 8.2 0.0-12.0 % Eosinophils (%) (Auto) 2.2 0.0-7.0 % Basophils (%) (Auto) 1.0 0.0-2.0 % Neutrophils # (Auto) 5.6 1.6-8.6 10 ^3/uL Lymphocytes # (Auto) 1.5 0.4-5.4 10 ^3/uL Monocytes # (Auto) 0.7 0-1.3 10 ^3/uL Eosinophils # (Auto) 0.2 0-0.8 10 ^3/uL Basophils # (Auto) 0.1 0-0.2 10 ^3/uL Nucleated Red Blood Cells 0.1 % Sodium Level 140 136-145 mmol/L Potassium Level 4.0 3.5-5.1 mmol/L Chloride Level 105 98-107 mmol/L Carbon Dioxide Level 29 20-31 mmol/L Anion Gap 6 5-15 Blood Urea Nitrogen 8 L 9-23 mg/dL Creatinine 0.76 0.550-1.02 mg/dL Glomerular Filtration Rate Calc 86 >90 mL/min BUN/Creatinine Ratio 10.5 10.0-20.0 Serum Glucose 103 74-106 mg/dL Calcium Level 9.6 8.7-10.4 mg/dL POC Glucose 116 H 70-106 mg/dl Assessment Hypertensive urgency Dyslipidemia Prediabetes Thyroid disease Obesity Plan/Recommendation (Dr. Yang) Generalized weakness likely secondary to hypertensive urgency in combination with recently prescribed OxyContin 40 mg and [place] 10 mg by pain management. Doubt events to be cardiac in nature. Given bradycardia, which is likely in the setting of Lopressor and clonidine therapy, consider an outpatient event monitor if deemed necessary. The patient could benefit from naloxone therapy at home when necessary. In the setting of an unremarkable echocardiogram, there is no further cardiac workup indicated at this time. Kindly call if in need to re-consult. Thank you for allowing us to participate in this patient's care. Please call if you have any questions or concerns. This medical document was created using an electronic medical record system with voice recognition software and computerized dictation system. Although this document has been carefully reviewed, there might still be some phonetic and typographical errors. Occasional wrong-word or ``sound-alike substitutions may have occurred due to the inherent limitations of voice recognition software. These areas are purely typographical due to imperfections of the software programs and do not reflect any compromise in the patient's medical care. Please read the chart carefully and recognize, using context, where these substitutions have occurred. Plan discussed with: Patient, Other NYHA Physical activity limitations: NA Date of Service: May 30, 2024 Billing Provider: RAFITA LEE [facility] Common Codes: [id number] INP/OBS CARE (High) ALEYDA YANG MD 05/31/24 1429: Family History: Patient reports no known family medical history. Allergies: Coded Allergies: Tramadol (Verified Allergy, Unknown, 03/23/22) Home Meds Active Scripts Acyclovir Topical (Zovirax) 5 % Cre, 1 APPLIC TOP 5XD, #15 GRAMS 1 Refill Prov:MEIR VICENTE MD 03/30/22 Lisinopril (Lisinopril) 20 Mg Tab, 1 TAB PO DAILY, #90 TAB 1 Refill Prov:MEIR VICENTE MD 03/30/22 Amlodipine Besylate (Amlodipine Besylate) 10 Mg Tab, 1 TAB PO DAILY, #90 TAB 1 Refill Prov:MEIR VICENTE MD 03/30/22 Hctz (Hydrochlorothiazide) 25 Mg Tab, 25 MG PO DAILY, #90 TAB Prov:MEIR VICENTE MD 03/30/22 Hydralazine Hcl (Hydralazine Hcl) 50 Mg Tab, 1 TAB PO TID, #90 TAB 5 Refills Prov:MEIR VICENTE MD 03/30/22 Albuterol Sulfate (VENTOLIN MDI) 90 Mcg Ih, 90 MCG IN Q4HR, #1 INH Prov:MEIR VIECNTE MD 03/30/22 Reported Medications Clonidine Hydrochloride (Clonidine Hcl) 0.2 Mg Tab, 1 TAB PO QID 05/30/24 Fluoxetine HCl (Fluoxetine HCl) 20 Mg Cap, 1 CAP PO DAILY 05/30/24 Clonazepam (Clonazepam) 0.5 Mg Tab, 1 TAB PO HS 05/30/24 Metoprolol Tartrate (LOPRESSOR TABLET) 50 Mg Tb, 1 TAB PO BID 05/30/24 Oxycodone Hcl (OxyCONTIN ER Tablet) 20 Mg Tb, 40 MG PO Q12HR, TAB 03/25/22 Hydrocodone-Acetaminophen ([place] 10/325MG) 1 Tab Tb, 1 TAB PO QID, #120 TAB 02/13/15 Levothyroxine Sodium (Levothyroxine Sodium) 75 Mcg Tab, 1 TAB PO DAILY, #30 TAB 5 Refills 02/13/15 Hydrochlorothiazide (Hydrochlorothiazide) 12.5 Mg Cap, 1 CAP PO DAILY, #30 CAP 5 Refills 02/13/15 Lisinopril (ZESTRIL TABLET) 20 Mg Tb, 20 MG OR DAILY 02/13/15 Discontinued Reported Medications Clonazepam (Clonazepam) 1 Mg Tab, 1 TAB PO DAILYP PRN for ANXIETY, #30 TAB 02/13/15 Discontinued Scripts Metoprolol Tartrate (Metoprolol Tartrate) 25 Mg Tab, 1 TAB PO BID, #180 TAB 1 Refill Prov:MEIR VICENTE MD 03/30/22 Azithromycin (Azithromycin) 500 Mg Tab, 1 TAB PO DAILY, #7 TAB Prov:MEIR VICENTE MD 03/30/22 Plan/Recommendation pt seen with RN pt has hx of severe hard to control HTN prob has underlying Robert office pt of mine cont BP meds check for HELEN and echo Plan discussed with: Patient RAFITA LEE CARMENZA May 30, 2024 18:26 ALEYDA YANG MD May 31, 2024 14:29
[2024-05-30 21:00] VITALS: BP_SYST 109; BP_SYST 112; BP_SYST 166; BP_DIAS 52; BP_DIAS 55; BP_DIAS 92; PULSE 57; PULSE 81; RESP 16; RESP 19; TEMP 97.2; TEMP 97.3; TEMP 97.8; O2SAT 92; O2SAT 96; O2SAT 97
[2024-05-30] MEDS: HYDROcodone-ACET 10/325MG TAB PO SCH (21:09)
[2024-05-30] MEDS: METOPROLOL TARTRATE 50 MG TAB PO SCH (21:10)
[2024-05-30] MEDS: LISINOPRIL 20 MG TAB PO SCH (21:10)
[2024-05-30] MEDS ORDERED: PATIENTS OWN MEDICATION (Clonidine Hydrochloride (Clonidine Hcl) 1 TAB) PO SCH (22:00)
[2024-05-30] MEDS: cloNIDine HCL 0.1 MG TAB PO SCH (22:04)
[2024-05-30] MEDS: clonazePAM 0.5 MG TAB PO SCH (23:41)
[2024-05-30] MEDS: oxyCODONE ER 20 MG TAB PO SCH (23:41)
[2024-05-31] VITALS (9 sets, daily range): BP systolic 105–176; BP diastolic 57–81; PULSE 51–64; RESP 16–19; TEMP 97.3–98.7; O2SAT 93–96
[2024-05-31] MEDS: FLUoxetine HCL 20 MG CAP PO SCH (09:47)
[2024-05-31] MEDS: amLODIPine BESYLATE 5 MG TAB PO SCH (09:47)
[2024-05-31] MEDS: LEVOTHYROXINE SODIUM 25 MCG TAB PO SCH (09:47)
[2024-05-31 13:40] LABS: Basophils # (auto) 0.1 10 ^3/uL (0-0.2); Eosinophils # (auto) 0.2 10 ^3/uL (0-0.8); Eosinophils % (auto) 2.3 % (0.0-7.0); Hematocrit 42.9 % (36.0-46.0); Hemoglobin 14.4 g/dL (12.2-16.2); Lymphocytes # (auto) 1.3 10 ^3/uL (0.4-5.4); Lymphocytes % (auto) 18.2 % (10.0-50.0); Mean Corpuscular Hemoglobin 30.3 pg (28.0-32.0); Mean Corpuscular Hgb Conc. 33.6 g/dL (32.0-36.0); Mean Corpuscular Volume 90.1 fL (80.0-100.0); Monocytes # (auto) 0.5 10 ^3/uL (0-1.3); Monocytes % (auto) 6.4 % (0.0-12.0); Neutrophils # (auto) 5.2 10 ^3/uL (1.6-8.6); Neutrophils % (auto) 72.1 % (37.0-80.0); Nucleated Red Blood Cells % 0.1 %; Platelet Count (auto) 281 10^3/uL (140-450); Red Blood Cells 4.76 10^6/uL (4.0-5.20); Red Cell Distribution Width 14.1 % (11.8-14.3); White Blood Cell 7.2 10^3/uL (4.4-10.8)
[2024-05-31 13:55] LABS: Alanine Aminotransferase 12 U/L (7-40); Albumin 4.3 g/dL (3.2-4.8); Alkaline Phosphatase 67 U/L (46-116); Anion Gap 6 (5-15); BUN/Creatinine Ratio 13.2 (10.0-20.0); Calcium 9.9 mg/dL (8.7-10.4); Carbon Dioxide 29 mmol/L (20-31); Chloride 106 mmol/L (98-107); Sodium 141 mmol/L (136-145); Total Protein 6.1 g/dL (5.7-8.2)
[2024-05-31 13:56] LABS: Bilirubin, Total 0.6 mg/dL (0.2-1.0)
[2024-05-31 13:57] LABS: Aspartate Aminotransferase 12 U/L (13-40); Blood Urea Nitrogen 9 mg/dL (9-23); Glucose 148 mg/dL (74-106)
--- NOTE | 2024-05-31 14:10 | DVHPN2 ---
Subjective Seen and examined at bedside, adjust BP meds. No other complaints Changes from previous H/P or p: No Changes Eyes: No Pain, No Vision change, No Conjunctivae inflammation, No Eyelid inflammation, No Other, No Redness ENT: No Ear pain, No Ear discharge, No Nose pain, No Nose discharge, No Nose congestion, No Mouth pain, No Mouth swelling, No Throat pain, No Throat swelling, No Other Cardiovascular: No Chest Pain, No Palpitations, No Orthopnea, No Paroxysmal Noc. Dyspnea, No Edema, No Lt Headedness, No Other Respiratory: No Cough, No Dry, No Shortness of breath, No SOB with excertion, No Wheezing, No Hemoptysis, No Pleuritic Pain, No Sputum, No Other Gastrointestinal: No Nausea, No Vomiting, No Abdominal Pain, No Diarrhea, No Constipation, No Melena, No Hematochezia, No Other Genitourinary: No Dysuria, No Frequency, No Incontinence, No Hematuria, No Retention, No Other Musculoskeletal: No other, No neck pain, No shoulder pain, No arm pain, No back pain, No hand pain, No leg pain, No foot pain Skin: No Rash, No Lesions, No Jaundice, No Bruising, No Other Objective Vitals Vital Signs Date Time Temp Pulse Resp B/P (MAP) Pulse Ox O2 Delivery O2 Flow Rate FiO2 05/31/24 13:00 98.4 64 16 176/73 (107) 93 98.4 05/31/24 08:00 Room Air* 0 21 Intake/Output Intake and Output 05/31/24 07:00 Intake Total 400 ml Balance 400 ml Intake Oral 400 ml # Voids 4 General Appearance: Alert, Oriented X3, Cooperative HEENT: Atraumatic Neck: Carotid Bruits Payne Lungs: Clear to auscultation Cardiovascular: Regular rate, Normal S1, Normal S2 Abdomen: Normal bowel sounds, Soft Psych/Mental Status: Mental status NL Medications Current Medications Medications Dose Ordered Sig/Neearj Route Start Time Stop Time Status Last Admin Dose Admin Acetaminophen/ Hydrocodone Bitart 1 tab Q4HP PRN PO 05/30/24 16:45 Ondansetron HCl 4 mg Q4HP PRN IV 05/30/24 16:45 Docusate Sodium 100 mg BIDPRN PRN PO 05/30/24 16:45 Acetaminophen 650 mg Q6HP PRN PO 05/30/24 16:45 Nitroglycerin 0.4 mg Q5MINP PRN SL 05/30/24 16:45 Morphine Sulfate 2 mg Q30M PRN IV 05/30/24 16:45 Amlodipine Besylate 10 mg DAILY PO 05/31/24 10:00 05/31/24 09:47 10 MG Levothyroxine Sodium 75 mcg DAILY PO 05/31/24 10:00 05/31/24 09:47 75 MCG Clonazepam 0.5 mg HS PO 05/30/24 22:00 05/30/24 23:41 0.5 MG Fluoxetine HCl 20 mg DAILY PO 05/31/24 10:00 05/31/24 09:47 20 MG Acetaminophen/ Hydrocodone Bitart 1 tab QID PO 05/30/24 22:00 05/31/24 11:55 1 TAB Metoprolol Tartrate 50 mg BID PO 05/30/24 22:00 05/31/24 09:48 50 MG Oxycodone HCl 40 mg Q12HR PO 05/30/24 22:00 05/31/24 09:49 40 MG Clonidine HCl 0.2 mg QID PO 05/30/24 22:00 05/31/24 11:55 0.2 MG Lisinopril 20 mg BID PO 05/30/24 22:00 05/31/24 09:46 20 MG Laboratory Results Laboratory Tests 05/31/24 13:15 Chemistry Test 05/30/24 15:20 05/31/24 13:15 Calcium Level 9.6 mg/dL (8.7-10.4) 9.9 mg/dL (8.7-10.4) Albumin 4.3 g/dL (3.2-4.8) Total Protein 6.1 g/dL (5.7-8.2) LFT Test 05/31/24 13:15 Alanine Aminotransferase (ALT) 12 U/L (7-40) Alkaline Phosphatase 67 U/L (46-116) Aspartate Amino Transferase (AST) 12 U/L (13-40) L Total Bilirubin 0.6 mg/dL (0.2-1.0) Assessment/Plan Assessment/Plan Hypertensive urgency - Monitor and adjust meds Presyncope Dyslipidemia Prediabetes- Check A1c Thyroid disease 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
--- NOTE | 2024-05-31 14:40 | DVHSR ---
APPROVED REPORT EXAM: Two-dimensional and M-mode echocardiogram with Doppler and color Doppler. Blood Pressure: 152/70 mmHg INDICATION Syncopal episodes RISK FACTORS Height: 70, Weight: 275 DIMENSIONS LVDd (3.8-5.7cm)LA (2D)4.9 (1.9-4.0cm)Aortic Root3.2 (2.0-3.7cm) LVDs (2.5-4.0cm)LA (MM) (1.9-4.0cm)Aortic Cusp Exc1.6 (1.5-2.0cm) EF (%) 72.0 (55-70%)Rt. Atrium3.8 (1.9-4.0cm)Asc. Aorta cm Mitral Valve MitralMitral Stenosis E wave0.95m/sMV Mean GR.mmHg A wave1.08m/sMV Peak GR.29mmHg E/A ratio0.92D MVAcm2 DECEL [id number] 1/2 [id number] IVRTmsDop MVA3.16cm2 Aortic Valve Aortic ValveAortic Stenosis V11.10m/Dipak Mean GR.5mmHg V21.67m/Dipak Peak GR.11mmHg LVOT Diameter2.0 (1.8-2.4cm)Doppler AVA2.07cm2 Other Information Technically limited study due to body habitus and patient kept talking during exam. Conclusion lvef 60% by visual estimate mild to moderate LVH normal rv function left atrium enlarged no severe valve abnormalities noted
[2024-05-31 15:28] LABS: HDL Cholesterol 44 mg/dL (40-59)
[2024-05-31 15:29] LABS: Cholesterol 215 mg/dL (< 200); LDL Cholesterol 143 mg/dL (< 100); Triglycerides 183 mg/dL (< 150)
[2024-05-31 17:12] LABS: Urine Bacteria None Seen /hpf (None Seen)
[2024-05-31 17:35] LABS: Urine Blood Negative /uL (Negative); Urine Clarity Clear (Clear); Urine Color Light-Yellow (Yellow); Urine Protein, UAD Negative (Negative); Urine Squamous Epithelial Cell FEW /hpf (<5); Urine Urobilinogen Normal (Negative); Urine WBC 1 /HPF (0-5); Urine pH 6.5 (5.0-9.0)
[2024-05-31] MEDS: CYANOCOBALAMIN (B-12) 1000 MCG/1 ML VIAL IM ONE (17:55)
[2024-05-31] MEDS: hydrALAZINE HCL 25 MG TAB PO SCH (22:00)
[2024-06-01] VITALS (7 sets, daily range): BP systolic 106–154; BP diastolic 51–79; PULSE 43–71; RESP 16–18; TEMP 97.6–98; O2SAT 92–96
[2024-06-01] MEDS: LEVOTHYROXINE SODIUM 25 MCG TAB PO SCH (05:46)
[2024-06-01] MEDS: CYANOCOBALAMIN 500 MCG TAB PO SCH (09:13)
[2024-06-01] MEDS ORDERED: CYAN500T3 PO (14:36)
[2024-06-01] MEDS ORDERED: AML5T PO (14:37)
--- NOTE | 2024-06-01 14:40 | DVHDS2 ---
Discharge Summary Date of Admission May 30, 2024 at 16:45 Date of Discharge: Jun 01, 2024 Admitting Diagnosis Hypertensive urgency Labs/Diagnostic Data: Laboratory Results Test 05/31/24 17:11 05/31/24 15:34 05/31/24 13:15 05/30/24 14:21 Urine Color Light-yellow (Yellow) Urine Clarity Clear (Clear) Urine pH 6.5 (5.0-9.0) Urine Specific [place] 1.010 (1.001-1.035) Urine Protein Negative (Negative) Urine Ketones Negative (Negative) Urine Blood Negative /uL (Negative) Urine Nitrite Negative (Negative) Urine Bilirubin Negative (Negative) Urine Urobilinogen Normal mg/dL (Negative) Urine Leukocyte Esterase Negative /uL (Negative) Urine RBC None seen /hpf (0 - 4) Urine Microscopic WBC 1 /HPF (0-5) Urine Squamous Epithelial Cells Few /hpf (<5) Urine Bacteria None seen /hpf (None Seen) Urine Glucose Normal mg/dL (Normal) Hemoglobin A1c 5.7 % A1C (<5.7) Vitamin B12 Level 227 pg/mL (211-911) White Blood Count 7.2 10^3/uL (4.4-10.8) Red Blood Count 4.76 10^6/uL (4.0-5.20) Hemoglobin 14.4 g/dL (12.2-16.2) Hematocrit 42.9 % (36.0-46.0) Mean Corpuscular Volume 90.1 fL (80.0-100.0) Mean Corpuscular Hemoglobin 30.3 pg (28.0-32.0) Mean Corpuscular Hemoglobin Concent 33.6 g/dL (32.0-36.0) Red Cell Distribution Width 14.1 % (11.8-14.3) Platelet Count 281 10^3/uL (140-450) Mean Platelet Volume 8.1 fL (6.9-10.8) Neutrophils (%) (Auto) 72.1 % (37.0-80.0) Lymphocytes (%) (Auto) 18.2 % (10.0-50.0) Monocytes (%) (Auto) 6.4 % (0.0-12.0) Eosinophils (%) (Auto) 2.3 % (0.0-7.0) Basophils (%) (Auto) 1.0 % (0.0-2.0) Neutrophils # (Auto) 5.2 10 ^3/uL (1.6-8.6) Lymphocytes # (Auto) 1.3 10 ^3/uL (0.4-5.4) Monocytes # (Auto) 0.5 10 ^3/uL (0-1.3) Eosinophils # (Auto) 0.2 10 ^3/uL (0-0.8) Basophils # (Auto) 0.1 10 ^3/uL (0-0.2) Nucleated Red Blood Cells 0.1 % Sodium Level 141 mmol/L (136-145) Potassium Level 4.0 mmol/L (3.5-5.1) Chloride Level 106 mmol/L (98-107) Carbon Dioxide Level 29 mmol/L (20-31) Anion Gap 6 (5-15) Blood Urea Nitrogen 9 mg/dL (9-23) Creatinine 0.68 mg/dL (0.550-1.02) Glomerular Filtration Rate Calc 96 mL/min (>90) BUN/Creatinine Ratio 13.2 (10.0-20.0) Serum Glucose 148 mg/dL (74-106) Calcium Level 9.9 mg/dL (8.7-10.4) Total Bilirubin 0.6 mg/dL (0.2-1.0) Aspartate Amino Transferase (AST) 12 U/L (13-40) Alanine Aminotransferase (ALT) 12 U/L (7-40) Alkaline Phosphatase 67 U/L (46-116) Total Protein 6.1 g/dL (5.7-8.2) Albumin 4.3 g/dL (3.2-4.8) Triglycerides Level 183 mg/dL (< 150) Cholesterol Level 215 mg/dL (< 200) LDL Cholesterol 143 mg/dL (< 100) HDL Cholesterol 44 mg/dL (40-59) Thyroid Stimulating Hormone (TSH) 1.57 uIU/mL (0.55-4.78) POC Glucose 116 mg/dl (70-106) Other Laboratory Tests 05/31/24 13:15 Brief Hx & Hospital Course: This is a 64-year-old female who presented to the emergency room with a chief complaint of generalized weakness. The patient reports episodes of increased dizziness and lack of energy with associated SBP in the 240s mmHg. Reports an episode where she was tired sitting of her bed when she possibly either fell asleep or experienced a near syncopal event prompting her to seek further medical attention. She manages her BP with clonidine 0.2 mg QID, lisinopril 20 mg BID, lopressor 50 mg bid, and amlodipine 10 mg QD stating compliance with medical therapy. Blood pressure is still elevated, patient had one episode of HR in 43. Patient advised to monitor blood pressure at home and record readings along with heart rate. Patient can be discharged home to followup with Dr. Mahan. 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 Mahan Medications: See Med [facility] Discharge Statement: "Patient was advised to return to the ER or call 911 if any headaches, dizziness, shortness of breath, chest pain, abdominal pain, bleeding, fevers, or worsening of medical condition. Patient was counseled about treatment plan, medications, possible side effects, patientverbalized understanding. All questions were answered to the best of my ability. This discharge took greater then 30 minutes in planning, reviewing documentation, counseling the patient, and discussing with other team members." ASSESSMENT ASSESSMENT Assessment Date of Service: Jun 01, 2024 Billing Provider: CAMILLE MAYNARD MD Common Visit Codes: 30600-EIB/OBS DISCH DAY >30min CAMILLE MAYNARD MD Jun 01, 2024 14:40
== END 2024-06-01 18:00 | disposition home or self-care (01) | DRG 305 ==
LOC: ER 14:09 → OVERFLOW 16:45 → TELE-WESTW 22:51
PROVIDERS: ADMIT Internal Medicine; ATTEND Internal Medicine
DX: I16.0 Hypertensive urgency (principal); G90.9 Disorder of the autonomic nervous system, unspecified; E03.9 Hypothyroidism, unspecified; E66.9 Obesity, unspecified; I10 Essential (primary) hypertension; R73.03 Prediabetes; E78.5 Hyperlipidemia, unspecified; G89.29 Other chronic pain; R00.1 Bradycardia, unspecified; Z68.25 Body mass index [BMI] 25.0-25.9, adult; Z96.651 Presence of right artificial knee joint; Z87.442 Personal history of urinary calculi; Z79.899 Other long term (current) drug therapy; Z88.8 Allergy status to other drugs, medicaments and biological substances
CPT/HCPCS: 36415; 70450; 80048; 80053; 80061; 81001; 82607; 82962; 83036; 84443; 85025; 93005; 93306; 93886; G0378